=== PATIENT | male | born 1950 | race Caucasian/White ===

== ENCOUNTER → 2016-09-04 | Outpatient (CLI) | payer BC ==
[~2016-09-04] MED LIST: ACET-749 PO; ASPI81TA28 PO; CETI10TA84 PO; CLC100 PO; CYCL0.05 OP; FURO-85 PO; IBUP-1050 PO; LEVO125T4 PO; LISI40TA PO; NEBI10TA2 PO; NIFE1TAB53 PO; OMEP40CA PO; PSYL1.7W PO; SENNTAB23 PO; SPIR25TA PO
--- NOTE | 2016-09-04 10:45 | DIAGNOSTIC IMAGING REPORT ---
ABDOMINAL ULTRASOUND HISTORY: Palpable lump. COMPARISON: PET/CT July 02, 2015. TECHNIQUE: Sonography of the left mid abdomen was performed at site of palpable abnormality. FINDINGS: There is an elliptical hypoechoic 1.5 x 1.5 x 0.5 cm abnormality within the deep subcutaneous tissues of the left mid abdomen. This represents the palpable abnormality. A corresponding abnormality is not shown on prior PET/CT of July 02, 2015. This contains no color flow. There may be fluid within this abnormality. IMPRESSION: 1.5 cm elliptical hypoechoic abnormality of the deep subcutaneous tissues of the left mid abdomen. This represents the palpable abnormality. The sonographic appearance is nonspecific although this may contain fluid and has no color flow. This may be postsurgical. Although indeterminate, this is likely benign. A follow-up ultrasound in 6 months to ensure stability is recommended. Electronically signed by: Oneil Garland M.D. 09/04/2016 10:44 AM Dictated Date/Time: 09/04/2016 10:38 AM
== END | disposition home or self-care (01) ==
LOC: C.ULTR 10:18
PROVIDERS: ATTEND Internal Medicine
DX: R19.02 Left upper quadrant abdominal swelling, mass and lump (principal)

== ENCOUNTER → 2016-12-29 | Outpatient (CLI) | payer BC ==
[~2016-12-29] MED LIST changes: -LEVO125T4 PO; +LEVO125T5 PO
[2016-12-29 10:10] LABS: HEMATOCRIT 36.3 % (42-52); MEAN CELL VOLUME 86.4 fL (80-100); MEAN CORPUSCULAR HEMOGLOBIN 30.5 pg (25-34); MEAN CORPUSCULAR HGB CONC 35.3 g/dl (32-36); MEAN PLATELET VOLUME 9.6 fL (7.4-10.4); PLATELET COUNT 257 K/uL (130-400); WHITE BLOOD COUNT 4.53 K/uL (4.8-10.8)
[2016-12-29 10:34] LABS: URINE APPEARANCE CLEAR (CLEAR); URINE BILIRUBIN NEG (NEG); URINE COLOR YELLOW; URINE EPITHELIAL CELL AUTO 0-5 /lpf (0-5); URINE NITRITE NEG (NEG); URINE PH 5.5 (4.5-7.5); URINE SPECIFIC GRAVITY 1.009 (1.000-1.030); UROBILINOGEN NEG (NEG)
[2016-12-29 10:36] LABS: MANUAL MICROSCOPIC REQUIRED? NO; REVIEW REQ? NO
[2016-12-29 10:46] LABS: URINE TOTAL PROTEIN < 5.0 mg/dl (0-11.9)
[2016-12-29 10:52] LABS: ALB/GLOB RATIO 1.4 (0.9-2); ALKALINE PHOSPHATASE 59 U/L (45-117); ALT/SGPT 24 U/L (12-78); AST/SGOT 15 U/L (15-37); BLOOD UREA NITROGEN 18 mg/dl (7-18); BUN/CREATININE RATIO 12.3 (10-20); CALCIUM 8.5 mg/dl (8.5-10.1); CARBON DIOXIDE 29 mmol/L (21-32); CHLORIDE 98 mmol/L (98-107); GLUCOSE 83 mg/dl (70-99); POTASSIUM 4.5 mmol/L (3.5-5.1); SODIUM 134 mmol/L (136-145)
--- NOTE | 2017-01-02 09:41 | CODING QUERY MEDICAL NECESSITY ---
SUPPORTING DIAGNOSIS NEEDED Dr. Moss, A supporting diagnosis is required for the test/procedure performed on this patient in order for us to be reimbursed by the patient's insurance. Please provide a supporting diagnosis for the following test/procedure listed below next to the test name along with your signature. *If there is no additional diagnosis for this patient that would support the following test/procedure please document that below next to the test/procedure. Test(s)/Procedure(s) that require a supporting diagnosis: * ([id number]) VITAMIN D ASSAY DIAGNOSIS: DATE OF SERVICE: 12/29/16 Provider Signature: Date: Thank you Pedrito Pelaez [facility] Once completed, please kindly fax back to [phone] For questions please call [phone]
== END | disposition home or self-care (01) ==
LOC: C.LAB 09:06
PROVIDERS: ATTEND Internal Medicine Nephrology
DX: E87.1 Hypo-osmolality and hyponatremia (principal); D64.9 Anemia, unspecified; I12.9 Hypertensive chronic kidney disease with stage 1 through stage 4 chronic kidney disease, or unspecified chronic kidney disease; N18.2 Chronic kidney disease, stage 2 (mild); E55.9 Vitamin D deficiency, unspecified

== ENCOUNTER → 2016-12-30 | Outpatient (CLI) | payer BC ==
[2016-12-30 10:02] LABS: CHOLESTEROL/HDL RATIO 3.5
== END | disposition home or self-care (01) ==
LOC: C.LAB1850 07:59
PROVIDERS: ATTEND Internal Medicine
DX: N18.2 Chronic kidney disease, stage 2 (mild) (principal)

== ENCOUNTER → 2017-01-05 | Outpatient (CLI) | payer BC ==
[~2017-01-05] MED LIST changes: +OPTIRAY 320 IV PRN
--- NOTE | 2017-01-05 14:36 | DIAGNOSTIC IMAGING REPORT ---
CT KIDNEY (ABDOMEN) COMBO CLINICAL HISTORY: C64.9 Renal cell carcinoma not diabetic, no latex allergy, no iod renal cell carcinoma TECHNIQUE: Transaxial acquisition and multiphase fashion. Multi axial reformatted images. COMPARISON STUDY: MRI dated 09/18/2015 FINDINGS: Findings consistent with an interval resection and/or ablation of the nodular density lateral aspect right kidney. The enhanced component of the study demonstrates uniform enhancement of the kidneys bilaterally. Several left renal cysts are present. These are unchanged from the prior exam. No abnormal enhancing lesion of the right kidney is currently present. There is no significant residual. There is mild parenchymal scarring of the right perinephric fat. There is small hepatic cyst medial aspect right hepatic lobe. Liver is otherwise uniform throughout. Spleen demonstrates several calcified granulomas. There is a partially calcified hypodensity anterior margin of the spleen. This is unchanged compared to the prior MRI study. It is stable and most likely benign. The adrenal glands are unremarkable. Bowel pattern is nonobstructive. There is no significant upper abdominal adenopathy. Pancreas is uniform throughout. Osseous structures are intact. IMPRESSION: 1. Interval resection and/or ablation of the nodular density lateral margin right kidney. 2. No evidence for significant residual, new,, or progressive process. 3. Stable nodularity anterior aspect of the spleen as well as stable cystic change left kidney. 4. No evidence for new, recurrent, or progressive change Electronically signed by: Devin Dupree M.D. 01/05/2017 2:35 PM Dictated Date/Time: 01/05/2017 2:26 PM
== END | disposition home or self-care (01) ==
LOC: C.CTS 13:55
PROVIDERS: ATTEND Urology
DX: C64.9 Malignant neoplasm of unspecified kidney, except renal pelvis (principal)

== ENCOUNTER → 2017-01-29 | Outpatient (CLI) | payer BC ==
[~2017-01-29] MED LIST changes: +LEVO125T4 PO; -LEVO125T5 PO; -OPTIRAY 320 IV PRN
--- NOTE | 2017-01-29 13:48 | DIAGNOSTIC IMAGING REPORT ---
RIGHT ANKLE MIN 3 VIEWS CLINICAL HISTORY: RIGHT ANKLE PAIN Right pain COMPARISON: None. DISCUSSION: The bones and joint spaces appear intact. There is no evidence of fracture, dislocation or bony disease. There is no evidence for soft tissue swelling. IMPRESSION: Negative study. Electronically signed by: Devin Dupree M.D. 01/29/2017 1:47 PM Dictated Date/Time: 01/29/2017 1:47 PM
== END | disposition home or self-care (01) ==
LOC: C.RDSM 13:37
PROVIDERS: ATTEND Internal Medicine
DX: M25.571 Pain in right ankle and joints of right foot (principal)

== ENCOUNTER → 2017-04-08 | Outpatient (CLI) | payer BC ==
[2017-04-08 12:57] LABS: HEMATOCRIT 33.3 % (42-52); MEAN CORPUSCULAR HGB CONC 34.8 g/dl (32-36); MEAN PLATELET VOLUME 9.4 fL (7.4-10.4); PLATELET COUNT 551 K/uL (130-400); RED BLOOD COUNT 3.87 M/uL (4.7-6.1); WHITE BLOOD COUNT 10.24 K/uL (4.8-10.8)
[2017-04-08 13:29] LABS: ALT/SGPT 63 U/L (12-78); AST/SGOT 36 U/L (15-37); BLOOD UREA NITROGEN 29 mg/dl (7-18); BUN/CREATININE RATIO 15.1 (10-20); CALCIUM 8.9 mg/dl (8.5-10.1); CARBON DIOXIDE 24 mmol/L (21-32); CHLORIDE 100 mmol/L (98-107); GLUCOSE 115 mg/dl (70-99); POTASSIUM 3.9 mmol/L (3.5-5.1); SODIUM 131 mmol/L (136-145)
[2017-04-08 13:32] LABS: ALB/GLOB RATIO 0.8 (0.9-2); ALKALINE PHOSPHATASE 94 U/L (45-117)
[2017-04-08 14:18] LABS: URINE APPEARANCE CLEAR (CLEAR); URINE BILIRUBIN NEG (NEG); URINE COLOR YELLOW; URINE NITRITE NEG (NEG); URINE SPECIFIC GRAVITY 1.016 (1.000-1.030); UROBILINOGEN NEG (NEG)
[2017-04-08 14:23] LABS: MANUAL MICROSCOPIC REQUIRED? YES; REVIEW REQ? NO
[2017-04-08 14:34] LABS: URINE PROTIEN/CREAT RATIO 0.2 (0-0.2)
[2017-04-08 14:38] LABS: URINE BACTERIA NEG (NEG); URINE RBC 0-4 /hpf (0-4)
--- NOTE | 2017-04-27 09:42 | CODING QUERY MEDICAL NECESSITY ---
CQSUPPORTING DIAGNOSIS NEEDED A supporting diagnosis is required for the test/procedure performed on this patient in order for us to be reimbursed by the patient's insurance. Please provide a supporting diagnosis for the following test/procedure listed below next to the test name along with your signature. *If there is no additional diagnosis for this patient that would support the following test/procedure please document that below next to the test/procedure. Test(s)/Procedure(s) that require a supporting diagnosis: DOS 04/08/17 VITAMIN D TEST Provider Signature: Date: Thank you Hilda Simon [facility] Information [facility] Once completed, please kindly fax back to [phone] For questions please call [phone]
== END | disposition home or self-care (01) ==
LOC: C.LAB1850 11:26
PROVIDERS: ATTEND Internal Medicine Nephrology
DX: I10 Essential (primary) hypertension (principal); E87.1 Hypo-osmolality and hyponatremia; D64.9 Anemia, unspecified; N18.2 Chronic kidney disease, stage 2 (mild); C64.9 Malignant neoplasm of unspecified kidney, except renal pelvis

== ENCOUNTER → 2017-05-12 | Outpatient (CLI) | payer BC ==
[2017-05-12 09:42] LABS: URINE APPEARANCE CLEAR (CLEAR); URINE BILIRUBIN NEG (NEG); URINE COLOR YELLOW; URINE EPITHELIAL CELL AUTO 0-5 /lpf (0-5); URINE NITRITE NEG (NEG); URINE SPECIFIC GRAVITY 1.019 (1.000-1.030); UROBILINOGEN NEG (NEG)
[2017-05-12 09:44] LABS: MANUAL MICROSCOPIC REQUIRED? NO; REVIEW REQ? NO
[2017-05-12 09:57] LABS: BLOOD UREA NITROGEN 22 mg/dl (7-18); BUN/CREATININE RATIO 15.8 (10-20); CALCIUM 8.6 mg/dl (8.5-10.1); CARBON DIOXIDE 27 mmol/L (21-32); CHLORIDE 99 mmol/L (98-107); CREATININE 1.41 mg/dl (0.60-1.40); GLUCOSE 90 mg/dl (70-99); PHOSPHORUS 3.4 mg/dl (2.5-4.9); POTASSIUM 4.7 mmol/L (3.5-5.1); SODIUM 132 mmol/L (136-145)
[2017-05-12 10:13] LABS: CREATININE, URINE 86.3 mg/dl; URINE TOTAL PROTEIN < 5.0 mg/dl (0-11.9)
== END | disposition home or self-care (01) ==
LOC: C.LAB1850 08:25
PROVIDERS: ATTEND Internal Medicine Nephrology
DX: I12.9 Hypertensive chronic kidney disease with stage 1 through stage 4 chronic kidney disease, or unspecified chronic kidney disease (principal); E87.1 Hypo-osmolality and hyponatremia; D64.9 Anemia, unspecified; N18.2 Chronic kidney disease, stage 2 (mild)

== ENCOUNTER → 2017-07-06 | Outpatient (CLI) | payer BC ==
[~2017-07-06] MED LIST changes: -LEVO125T4 PO; +LEVO125T5 PO
[2017-07-06 10:06] LABS: MEAN CELL VOLUME 87.3 fL (80-100); MEAN CORPUSCULAR HEMOGLOBIN 30.2 pg (25-34); MEAN CORPUSCULAR HGB CONC 34.6 g/dl (32-36); MEAN PLATELET VOLUME 9.5 fL (7.4-10.4); PLATELET COUNT 256 K/uL (130-400); RED BLOOD COUNT 4.01 M/uL (4.7-6.1); WHITE BLOOD COUNT 4.88 K/uL (4.8-10.8)
[2017-07-06 10:36] LABS: BLOOD UREA NITROGEN 20 mg/dl (7-18); BUN/CREATININE RATIO 13.5 (10-20); CALCIUM 8.7 mg/dl (8.5-10.1); CARBON DIOXIDE 28 mmol/L (21-32); CHLORIDE 100 mmol/L (98-107); CREATININE 1.45 mg/dl (0.60-1.40); GLUCOSE 86 mg/dl (70-99); PHOSPHORUS 3.4 mg/dl (2.5-4.9); POTASSIUM 4.6 mmol/L (3.5-5.1); SODIUM 134 mmol/L (136-145)
[2017-07-06 12:47] LABS: URINE APPEARANCE CLEAR (CLEAR); URINE BILIRUBIN NEG (NEG); URINE COLOR YELLOW; URINE EPITHELIAL CELL AUTO 0-5 /lpf (0-5); URINE NITRITE NEG (NEG); URINE SPECIFIC GRAVITY 1.013 (1.000-1.030); UROBILINOGEN NEG (NEG)
[2017-07-06 12:58] LABS: MANUAL MICROSCOPIC REQUIRED? NO; REVIEW REQ? NO
[2017-07-06 14:01] LABS: CREATININE, URINE 60.9 mg/dl; URINE TOTAL PROTEIN < 5.0 mg/dl (0-11.9)
== END | disposition home or self-care (01) ==
LOC: C.LAB1850 09:21
PROVIDERS: ATTEND Internal Medicine Nephrology
DX: I12.9 Hypertensive chronic kidney disease with stage 1 through stage 4 chronic kidney disease, or unspecified chronic kidney disease (principal); E87.1 Hypo-osmolality and hyponatremia; D64.9 Anemia, unspecified; B34.9 Viral infection, unspecified; N18.2 Chronic kidney disease, stage 2 (mild)

== ENCOUNTER → 2017-11-05 | Outpatient (CLI) | payer OTHER ==
[~2017-11-05] MED LIST changes: -NIFE1TAB53 PO; +NIFE30TA86 PO
[2017-11-05 10:14] LABS: HEMATOCRIT 36.3 % (42-52); HEMOGLOBIN 12.9 g/dL (14.0-18.0); MEAN CELL VOLUME 85.4 fL (80-100); MEAN CORPUSCULAR HEMOGLOBIN 30.4 pg (25-34); MEAN CORPUSCULAR HGB CONC 35.5 g/dl (32-36); MEAN PLATELET VOLUME 9.6 fL (7.4-10.4); PLATELET COUNT 294 K/uL (130-400); RED CELL DISTRIBUTION WIDTH CV 12.4 % (11.5-14.5); RED CELL DISTRIBUTION WIDTH SD 38.1 fL (36.4-46.3); WHITE BLOOD COUNT 4.89 K/uL (4.8-10.8)
[2017-11-05 10:42] LABS: ALBUMIN 3.8 gm/dl (3.4-5.0); BLOOD UREA NITROGEN 25 mg/dl (7-18); CALCIUM 8.6 mg/dl (8.5-10.1); CARBON DIOXIDE 29 mmol/L (21-32); CREATININE 1.42 mg/dl (0.60-1.40); GLUCOSE 98 mg/dl (70-99); SODIUM 132 mmol/L (136-145)
[2017-11-05 10:43] LABS: PHOSPHORUS 2.8 mg/dl (2.5-4.9)
[2017-11-05 11:49] LABS: OSMOLALITY,URINE 301 mOms/kg (500-800)
== END | disposition home or self-care (01) ==
LOC: C.LAB1850 08:55
PROVIDERS: ATTEND Internal Medicine Nephrology
DX: I10 Essential (primary) hypertension (principal); E87.1 Hypo-osmolality and hyponatremia; D64.9 Anemia, unspecified; N28.89 Other specified disorders of kidney and ureter

== ENCOUNTER → 2017-11-13 | Outpatient (CLI) | payer OTHER | END | disposition home or self-care (01) | LOC: C.LAB1850 08:58 | PROVIDERS: ATTEND Internal Medicine | DX: I10 Essential (primary) hypertension (principal) ==

== ENCOUNTER → 2018-02-17 | Outpatient (CLI) | payer OTHER ==
[~2018-02-17] MED LIST changes: -ACET-749 PO; +ACET300T3 PO
[2018-02-17 09:31] LABS: HEMATOCRIT 39.1 % (42-52); HEMOGLOBIN 12.9 g/dL (14.0-18.0); MEAN CELL VOLUME 88.1 fL (80-100); MEAN CORPUSCULAR HEMOGLOBIN 29.1 pg (25-34); MEAN PLATELET VOLUME 10.1 fL (7.4-10.4); PLATELET COUNT 244 K/uL (130-400); RED CELL DISTRIBUTION WIDTH CV 12.2 % (11.5-14.5); RED CELL DISTRIBUTION WIDTH SD 39.1 fL (36.4-46.3); WHITE BLOOD COUNT 5.31 K/uL (4.8-10.8)
[2018-02-17 10:03] LABS: ALBUMIN 3.8 gm/dl (3.4-5.0); ALKALINE PHOSPHATASE 62 U/L (45-117); ALT/SGPT 23 U/L (12-78); AST/SGOT 15 U/L (15-37); BLOOD UREA NITROGEN 22 mg/dl (7-18); CARBON DIOXIDE 27 mmol/L (21-32); CREATININE 1.45 mg/dl (0.60-1.40); GLUCOSE 125 mg/dl (70-99); POTASSIUM 4.4 mmol/L (3.5-5.1); SODIUM 139 mmol/L (136-145); TOTAL PROTEIN 6.9 gm/dl (6.4-8.2)
[2018-02-17 20:34] LABS: OSMOLALITY,URINE 214 mOms/kg (500-800)
== END | disposition home or self-care (01) ==
LOC: C.LAB1850 08:48
PROVIDERS: ATTEND Internal Medicine Nephrology
DX: I10 Essential (primary) hypertension (principal); E87.1 Hypo-osmolality and hyponatremia; D64.9 Anemia, unspecified; N18.2 Chronic kidney disease, stage 2 (mild)

== ENCOUNTER → 2018-02-26 | Outpatient (CLI) | payer OTHER ==
[~2018-02-26] MED LIST changes: +OPTIRAY 320 IV PRN
--- NOTE | 2018-02-26 10:41 | DIAGNOSTIC IMAGING REPORT ---
ABD/PELVIS COMBO HISTORY: 67 years-old Male J30.9 Allergic wkiqkbowC76.9 Acid icraaeJ80.9 Renal cell carcino follow-up study in a patient with history of renal cell carcinoma. History of prior partial right. COMPARISON: CT of the abdomen 01/05/2017 TECHNIQUE: Multiple axial CT images of the abdomen and pelvis were obtained both with and without the use of 119 mL Optiray 320 IV contrast. A dose lowering technique was used consistent with the principals of ROXANNA. FINDINGS: Lung bases are clear. No pneumatosis or pneumoperitoneum. Imaged inferior cardiac chambers are upper limits of normal in size. Coronary arterial calcifications are noted. Scattered calcific granulomata about the liver and spleen. Mild generalized pancreatic atrophy. Adrenal glands are unremarkable. Unchanged cyst of the left hepatic lobe, 2.2 cm. There are several hypodense lesions about the spleen measuring up to 7 mm which statistically favor benign etiology. Cysts are noted about the bilateral kidneys measuring up to 2.4 x 3.2 cm within the inferior pole left kidney. Postoperative changes from partial fracture involving the lateral interpolar right kidney with mild persistent perinephric stranding. No evidence of residual or recurrent disease. These findings appear stable from comparison. Mild cortical scarring of the superior pole right kidney. No renal calculi or obstructive uropathy. The prostate is enlarged. Mild distention of the bladder. Moderate calcification of the aorta without aneurysm. IVC appears unremarkable. Portal vein is patent. There are no pathologically enlarged lymph nodes identified. Retroaortic left renal vein. No bowel obstruction or focal bowel wall thickening. Visualized appendix appears normal. No ascites or mesenteric inflammatory changes. Soft tissues are within normal limits. Bones appear intact. There are no suspicious lytic or blastic bony lesions. Mild levoscoliosis of the lumbar spine. IMPRESSION: 1. No acute intra-abdominal or intrapelvic abnormality identified. 2. Postoperative changes from prior partial nephrectomy involving the lateral interpolar right kidney. No evidence of residual or recurrent disease or abnormal enhancement. 3. Prior granulomatous disease. 4. Prostamegaly. 5. Additional findings as above. The above report was generated using voice recognition software. It may contain grammatical, syntax or spelling errors. Electronically signed by: Jefe García M.D. 02/26/2018 10:40 AM Dictated Date/Time: 02/26/2018 10:21 AM
== END | disposition home or self-care (01) ==
LOC: C.CTS 09:23
PROVIDERS: ATTEND Urology
DX: C64.9 Malignant neoplasm of unspecified kidney, except renal pelvis (principal); I10 Essential (primary) hypertension; J30.9 Allergic rhinitis, unspecified; K21.9 Gastro-esophageal reflux disease without esophagitis; M76.60 Achilles tendinitis, unspecified leg; R19.02 Left upper quadrant abdominal swelling, mass and lump